=== PATIENT | female | born 1975 | race Caucasian/White ===

== ENCOUNTER 2016-06-21 18:47 | Emergency (ER) | payer OTHER ==
[~2016-06-21] VITALS: Ht 177.8 cm; Wt 71.7 kg
[~2016-06-21 18:47] MED LIST: NFPRILOC40 PO; PANT40TA2 PO; SUCR1ORA5 PO; SUCR1TAB36 PO
--- OUTSIDE RECORDS SUMMARY | 2016-06-21 18:53 | XMS REPORT | Referral Summary ---
Author Author [facility] Organization [facility] Address Unknown Phone Unavailable Care Team Providers Care Process Tank Tender Name Role Phone PROVIDER, NOTINSYSTEM PCP Unavailable Encounter Date(s): 02/23/16 - 02/23/16 [facility] [address] [place], [place] [address] Discharge Diagnosis: Pyloric stenosis Discharge Disposition: 01-Home or Self Care Attending Physician: Myke Chapman III, MD Admitting Physician: Myke Chapman III, MD Vital Signs Most recent to 1 oldest [Reference Range]: Peripheral Pulse 104 bpm Rate [60-100 bpm] *HI* (02/23/16 2:51 PM) Blood Pressure 110/71 mmHg [90-140/60-90 mmHg] (02/23/16 2:51 PM) Problem List No data available for this section Allergies, Adverse Reactions, Alerts No Known Allergies Medications Carafate g, Oral, QIDACHS, 0 Refill(s) Start Date: 02/23/16 Status: OrderedProtonix Oral, Daily, 0 Refill(s) Start Date: 02/23/16 Status: Ordered Results No data available for this section Immunizations No data available for this section Procedures No data available for this section Social History Social History Type Response Smoking Status Current every day smoker; Type: Cigarettes; Tobacco use per day: 1 Pack Assessment and Plan No data available for this section
[2016-06-21 19:20] LABS: BILIRUBIN,URINE NEGATIVE (NEGATIVE); KETONES,URINE 1+ (NEGATIVE); LEUKOCYTE ESTERASE ,URINE 1+ (NEGATIVE); NITRITE,URINE POSITIVE (NEGATIVE); PH,URINE 8 (5-9); PROTEIN,URINE 2+ (NEGATIVE); UROBILINOGEN,URINE NORMAL (NORMAL)
[2016-06-21] MEDS ORDERED: NS IV 1000 ML 1,000 ML IV ONE (19:27)
[2016-06-21] MEDS ORDERED: FAMOTIDINE 20MG/2ML IV (PEPCID) IVP ONE (19:30)
[2016-06-21] MEDS ORDERED: ONDANSETRON 4 MG/2 ML (SDV) Z0FRAN IVP ONE (19:30)
[2016-06-21] MEDS ORDERED: fentaNYL INJECTION 100 MCG/2 ML AMP IVP ONE (19:30)
[2016-06-21 19:36] LABS: BASOPHILS % (AUTO) 0 % (0-10); EOSINOPHILS # (AUTO) 0.1 10^3/uL (0.0-0.3); EOSINOPHILS % (AUTO) 1 % (0-10); LYMPHOCYTES # (AUTO) 2.9 X 10^3 (1.0-4.0); LYMPHOCYTES % (AUTO) 25 % (12-44); MEAN CORPUSCULAR HEMOGLOBIN 24 PG (25-34); MEAN CORPUSCULAR HGB CONC 32 G/DL (32-36); MEAN CORPUSCULAR VOLUME 76 FL (80-99); MEAN PLATELET VOLUME 10.6 FL (7.4-10.4); MONOCYTES # (AUTO) 0.7 X 10^3 (0.0-1.0); MONOCYTES % (AUTO) 6 % (0-12); NEUTROPHILS # (AUTO) 7.9 X 10^3 (1.8-7.8); NEUTROPHILS % (AUTO) 68 % (42-75); PLATELET COUNT 382 10^3/uL (130-400); RED BLOOD COUNT 4.75 10^6/uL (4.35-5.85); RED CELL DISTRIBUTION WIDTH 17.5 % (10.0-14.5); WHITE BLOOD COUNT 11.6 10^3/uL (4.3-11.0)
[2016-06-21 19:41] LABS: SQUAMOUS EPITHELIAL CELL,UR >50 /HPF
[2016-06-21 19:49] LABS: ALANINE AMINOTRANSFERASE 29 U/L (0-55); ALBUMIN 4.6 G/DL (3.2-4.5); ANION GAP 15 MMOL/L (5-14); ASPARTATE AMINO TRANSFERASE 21 U/L (5-34); BILIRUBIN,TOTAL 0.4 MG/DL (0.1-1.0); BLOOD UREA NITROGEN 8 MG/DL (7-18); BUN/CREATININE RATIO 11; CALCIUM 11.5 MG/DL (8.5-10.1); CARBON DIOXIDE 23 MMOL/L (21-32); CHLORIDE 102 MMOL/L (98-107); CREATININE SERUM 0.72 MG/DL (0.60-1.30); GFR ESTIMATED > 60; GLUCOSE 105 MG/DL (70-105); LIPASE 22 U/L (8-78); POTASSIUM 3.7 MMOL/L (3.6-5.0); SODIUM 140 MMOL/L (135-145); TOTAL PROTEIN 7.6 G/DL (6.4-8.2); hs C REACTIVE PROTEIN 0.16 MG/DL (0.00-0.50)
[2016-06-21] MEDS ORDERED: cefTRIAXone INJECTION 1,000 MG in NORMAL SALINE (BAXTER MINI) 50 ML IV ONE (20:00)
--- NOTE | 2016-06-21 20:00 | Diagnostic Imaging Report ---
INDICATION: History of pyloric stenosis. FINDINGS: The lung bases are clear. The stomach is distended with air-fluid level present. The small bowel and colon are not distended. There is very little stool noted within the colon. There is no organomegaly. No pathologic calcification. No bony abnormalities. IMPRESSION: Distended stomach which is fluid-filled with very little gas or stool in the colon. Dictated by: Dictated on workstation # [id number]
[2016-06-21] MEDS ORDERED: LIDOCAINE 2% VISCOUS 15 ML UDC PO ONE (20:15)
[2016-06-21] MEDS ORDERED: ANTACID SUSP 30 ML UDC (MYLANTA) PO ONE (20:15)
[2016-06-21] MEDS ORDERED: RX-METOCLOPRAMIDE 5 MG (REGLAN) TAB PPK#8 PO STA (20:37)
--- NOTE | 2016-06-21 20:37 | ED Abdominal Pain ---
General Chief Complaint: Abdominal/GI Problems Stated Complaint: ABD PAIN, POST PROCEDURE Nursing Triage Note: patient reports having an EGD with dilation 1 week ago. patient reports having cramping and abdomen pain since Sepsis Screen: No Definite Risk Source of Information: Patient Exam Limitations: No Limitations History of Present Illness Time Seen By Provider: 19:07 Initial Comments This 41-year-old woman presents to the emergency room with rather intense epigastric pain associated with nausea and vomiting. She reports having an EGD with dilation performed last by Dr. Peter Chapman, her specialist at [facility]. She requires these procedures every couple of months. She has been taking Protonix and Carafate as prescribed. She needs surgical treatment but is delaying treatment until school is over in October. She denies any fever. She attempted to contact her specialist's office today and left a voicemail. They have not yet returned her call. She has significant cramping associated with her pain. She has had difficulty staying hydrated today because of her nausea and pain. Allergies and Home Medications Allergies Coded Allergies: No Known Drug Allergies (Unverified , 09/13/15) Home Medications Pantoprazole Sodium 40 Mg Tablet.dr #60 40 MG PO BID Prescribed by: FRANK LUCERO on 10/13/15 1315 Sucralfate 1 Gm/10 Ml Oral.susp #120 1 GM PO QID Prescribed by: FRANK LUCERO on 10/13/15 1315 Review of Systems Constitutional: no symptoms reported EENTM: No Symptoms Reported Respiratory: No Symptoms Reported Cardiovascular: No Symptoms Reported Gastrointestinal: See HPI Genitourinary: No Symptoms Reported Musculoskeletal: no symptoms reported Skin: no symptoms reported Psychiatric/Neurological: No Symptoms Reported Endocrine: No Symptoms Reported Past Tntnylv-Alvhvi-Chhuns Hx Patient Social History Alcohol Use: Denies Use Recreational Drug Use: No Smoking Status: Current Everyday Smoker Type Used: Cigarettes Recent Foreign Travel: No Contact w/Someone Who Travel: No Recent Infectious Disease Expo: No Recent Hopitalizations: No Physical Abuse Screen: No Sexual Abuse: No Surgeries HX Surgeries: Yes (left breast lumpectomy, dxls, egd, pyloric stenosis dilation ) Respiratory Hx Respiratory Disorders: No Cardiovascular Hx Cardiac Disorders: No Neurological Hx Neurological Disorders: No Reproductive System : No Genitourinary Hx Genitourinary Disorders: No Gastrointestinal Hx Gastrointestinal Disorders: Yes (pyloric stenosis) Musculoskeletal Hx Musculoskeletal Disorders: No Endocrine Hx Endocrine Disorders: No HEENT HX ENT Disorders: No Cancer Hx Cancer: No Psychosocial Hx Psychiatric Problems: No Family Medical History Significant Family History: Heart Disease, Cancer, CAD Under 55 Years Old, Diabetes Physical Exam Vital Signs VS - Last 72 Hours, by Label 06/21/16 06/21/16 19:00 21:40 Temp 99.8 Pulse 120 88 Resp 18 18 B/P 133/79 Pulse Ox 96 99 Capillary Refill : Less Than 3 Seconds General Appearance: WD/WN mild distress HEENT: PERRL/EOMI normal ENT inspection Respiratory: lungs clear normal breath sounds no respiratory distress no accessory muscle use Cardiovascular: regular rate, rhythm no edema no murmur Gastrointestinal: normal bowel sounds soft tenderness (epigastrium) Extremities: normal inspection no pedal edema 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 no motor/sensory deficits alert normal mood/affect oriented x 3 Skin: normal color warm/dry Progress/Results/Core Measures Results/Orders Lab Results Laboratory Tests Test 06/21/16 19:06 06/21/16 19:10 Range/Units Urine Bacteria LARGE H /HPF Urine Bilirubin NEGATIVE NEGATIVE Urine Casts NONE /LPF Urine Clarity SLIGHTLY CLOUDY Urine Color YELLOW Urine Crystals NONE /LPF Urine Culture Indicated YES Urine Glucose (UA) NEGATIVE NEGATIVE Urine Ketones 1+ H NEGATIVE Urine Leukocyte Esterase 1+ H NEGATIVE Urine Mucus NEGATIVE /LPF Urine Nitrite POSITIVE H NEGATIVE Urine Protein 2+ H NEGATIVE Urine RBC NONE /HPF Urine RBC (Auto) NEGATIVE NEGATIVE Urine Specific [place] 1.010 L 1.016-1.022 Urine Squamous Epithelial Cells >50 H /HPF Urine Urobilinogen NORMAL NORMAL MG/DL Urine WBC 10-25 H /HPF Urine pH 8 5-9 Alanine Aminotransferase (ALT/SGPT) 29 0-55 U/L Albumin 4.6 H 3.2-4.5 G/DL Alkaline Phosphatase 69 40-136 U/L Anion Gap 15 H 5-14 MMOL/L Aspartate Amino Transf (AST/SGOT) 21 5-34 U/L BUN/Creatinine Ratio 11 Basophils # (Auto) 0.0 0.0-0.1 10^3/uL Basophils (%) (Auto) 0 0-10 % Blood Urea Nitrogen 8 7-18 MG/DL C-Reactive Protein High Sensitivity 0.16 0.00-0.50 MG/DL Calcium Level 11.5 H 8.5-10.1 MG/DL Carbon Dioxide Level 23 21-32 MMOL/L Chloride Level 102 98-107 MMOL/L Creatinine 0.72 0.60-1.30 MG/DL Eosinophils # (Auto) 0.1 0.0-0.3 10^3/uL Eosinophils (%) (Auto) 1 0-10 % Estimat Glomerular Filtration Rate > 60 Glucose Level 105 70-105 MG/DL Hematocrit 36 35-52 % Hemoglobin 11.5 11.5-16.0 G/DL Lipase 22 8-78 U/L Lymphocytes # (Auto) 2.9 1.0-4.0 X 10^3 Lymphocytes (%) (Auto) 25 12-44 % Mean Corpuscular Hemoglobin 24 L 25-34 PG Mean Corpuscular Hemoglobin Concent 32 32-36 G/DL Mean Corpuscular Volume 76 L 80-99 FL Mean Platelet Volume 10.6 H 7.4-10.4 FL Monocytes # (Auto) 0.7 0.0-1.0 X 10^3 Monocytes (%) (Auto) 6 0-12 % Neutrophils # (Auto) 7.9 H 1.8-7.8 X 10^3 Neutrophils (%) (Auto) 68 42-75 % Platelet Count 382 130-400 10^3/uL Potassium Level 3.7 3.6-5.0 MMOL/L Red Blood Count 4.75 4.35-5.85 10^6/uL Red Cell Distribution Width 17.5 H 10.0-14.5 % Sodium Level 140 135-145 MMOL/L Total Bilirubin 0.4 0.1-1.0 MG/DL Total Protein 7.6 6.4-8.2 G/DL White Blood Count 11.6 H 4.3-11.0 10^3/uL My Orders Orders-TERESA ELIZONDO MD Ua Culture If Indicated (06/21/16 19:07) Cbc With Automated Diff (06/21/16 19:27) Comprehensive Metabolic Panel (06/21/16 19:27) Hs C Reactive Protein (06/21/16 19:27) Lipase (06/21/16 19:27) Saline Lock/Iv-Start (06/21/16 19:27) Ns Iv 1000 Ml (Sodium Chloride 0.9%) (06/21/16 19:27) Famotidine Injection (Pepcid Injection) (06/21/16 19:30) Ondansetron Injection (Zofran Injectio (06/21/16 19:30) Fentanyl Injection (Sublimaze Injection (06/21/16 19:30) Urine Bedside (06/21/16 19:29) Abdomen, Flat & Upright/Decub (06/21/16 19:29) Urine Culture (06/21/16 19:06) Ceftriaxone Injection (Rocephin Injectio (06/21/16 20:00) Lidocaine 2% Viscous 15 Ml (Xylocaine Vi (06/21/16 20:15) Antacid Suspension (Mylanta Suspension (06/21/16 20:15) Rx-Metoclopramide Tab (Rx-Reglan Tab) (06/21/16 20:37) Hyoscyamine Sl Tablet (Levsin Sl Tablet) (06/21/16 21:00) Hydrocodone/Apap 5/325 Tablet (Lortab 5 (06/21/16 21:30) Rx-Hyoscyamine Tab (Rx-Levsin Sl) (06/21/16 21:26) Rx-Ondansetron Po (Rx-Zofran Po) (06/21/16 21:26) Medications Given in ED Current Medications Medications Dose Ordered Sig/Nicole Route Start Time Stop Time Status Last Admin Dose Admin Acetaminophen/ Hydrocodone Bitart 1 tab ONCE ONCE PO 06/21/16 21:30 06/21/16 21:31 DC 06/21/16 21:40 1 TAB Al Hydrox/Mg Hydrox/Simethicone 30 ml ONCE ONCE PO 06/21/16 20:15 06/21/16 20:16 DC 06/21/16 20:09 30 ML Ceftriaxone Sodium/Sodium Chloride 50 ml @ 100 mls/hr ONCE ONCE IV 06/21/16 20:00 06/21/16 20:29 DC 06/21/16 20:09 100 MLS/HR Famotidine 20 mg ONCE ONCE IVP 06/21/16 19:30 06/21/16 19:31 DC 06/21/16 19:37 20 MG Fentanyl Citrate 50 mcg 50 mcg ONCE ONCE IVP 06/21/16 19:30 06/21/16 19:31 DC 06/21/16 19:37 50 MCG Hyoscyamine Sulfate 0.25 mg ONCE ONCE PO 06/21/16 21:00 06/21/16 21:01 DC 06/21/16 21:01 0.25 MG Lidocaine HCl 15 ml ONCE ONCE PO 06/21/16 20:15 06/21/16 20:16 DC 06/21/16 20:09 15 ML Ondansetron HCl 8 mg ONCE ONCE IVP 06/21/16 19:30 06/21/16 19:31 DC 06/21/16 19:37 8 MG Sodium Chloride 1,000 ml @ 0 mls/hr Q0M ONCE IV 06/21/16 19:27 06/21/16 19:30 DC 06/21/16 19:37 0 MLS/HR Vital Signs/I&O Vital Sign - Last 12Hours 06/21/16 06/21/16 19:00 21:40 Temp 99.8 Pulse 120 88 Resp 18 18 B/P 133/79 Pulse Ox 96 99 Blood Pressure Mean: 97 Point of Care Testing Urine -Bedside: Negative Progress Note : Progress Note Patient had some improvement with GI cocktail and Pepcid. She was additionally treated with fentanyl for additional pain relief. Rocephin was given for treatment of urinary tract infection. Levsin was given for cramping which did provide relief. Take home packets of Zofran, Reglan, and Levsin were provided. Stomach appeared distended on x-rays. Delayed gastric emptying was suspected. For this reason Reglan was provided to increase GI motility. Hydrocodone was given just before dismissal to help her get through the night. Diagnostic Imaging Diagonstic Imaging: Xray Plain Films/CT/US/NM/MRI: abdomen, pelvis Comments Flat and upright abdominal films viewed by me and report reviewed. See report below: NAME: ANDREW RODGERS [facility] REC#: [id number] PT STATUS: REG ER : 1975 PHYSICIAN: TERESA ELIZONDO MD ADMIT DATE: 06/21/16/ER Signed Date of Exam: 06/21/16 ABDOMEN, FLAT & UPRIGHT/DECUB INDICATION: History of pyloric stenosis. FINDINGS: The lung bases are clear. The stomach is distended with air-fluid level present. The small bowel and colon are not distended. There is very little stool noted within the colon. There is no organomegaly. No pathologic calcification. No bony abnormalities. IMPRESSION: Distended stomach which is fluid-filled with very little gas or stool in the colon. Dictated by: Dictated on workstation # [id number] Dict: 06/21/161957 Trans: 06/21/162015 PRATIK [id number] Interpreted by: SAMINA BHATT MD Electronically signed by:SAMINA BHATT MD 06/21/162018 Departure Impression Impression: Primary Impression: Epigastric pain Additional Impressions: Urinary tract infection Qualified Code: N39.0 - Urinary tract infection, site not specified Pyloric stenosis Nausea and vomiting Qualified Code: R11.2 - Nausea with vomiting, unspecified Disposition: 01 HOME, SELF-CARE Condition: Improved Departure-Patient Inst. Decision time for Depature: 21:28 Referrals: [facility] (PCP/Family) Primary Care Physician Patient Instructions: Acute Abdomen (Belly Pain), Adult (DC), Urinary Tract Infection, Adult (DC) Add. Discharge Instructions: You're being provided with multiple medications this evening to trial. They are as follows: Levsin (hyoscyamine) - Use this medication for abdominal cramping or spasms. Dissolve 1 or 2 under the tongue every 4 hours as needed. Zofran (ondansetron) - Dissolve one under the tongue every 4 hours as needed for nausea. Reglan (metoclopramide) - You may take one every 6 hours as needed for nausea. This medication increases GI motility which may help your stomach empty better. This medication can cause abnormal muscle twitching and movements has an adverse side effect. If you experience these symptoms, please discontinue. Also discontinue Reglan if it worsens or cramping. It may be helpful to take Zofran (ondansetron) prior to this medication to ensure you keep it down when nauseated. Contact your GI specialist as soon as possible tomorrow for further instructions. Until then, stick to a clear liquid diet. Return to the emergency room if symptoms worsen. You may benefit from adding Pepcid (famotidine) [id number] 20 mg twice a day for additional antacid relief. Avoid things that may irritate your stomach including: Large meals, eating close to bedtime, spicy foods, citrus fruits and juices, caffeine, carbonation, chocolate, mint, tomato products, tobacco, alcohol, NSAID medications such as ibuprofen or naproxen, fatty or greasy foods, or anything else you know irritate your stomach. All discharge instructions reviewed with patient and/or family. Voiced understanding. Scripts Cephalexin (Keflex)500 Mg [id number] Mg PO QID #28 CAP Please notify patient when ready for pickup Prov:TERESA ELIZONDO MD 06/22/16 TERESA ELIZONDO MD Jun 21, 2016 20:37
[2016-06-21] MEDS ORDERED: HYOSCYAMINE 0.125 MG (LEVSIN) TAB PO ONE (21:00)
[2016-06-21] MEDS ORDERED: RX-HYOSCYAMINE 0.125 MG SL (LEVSIN) PPK#6 SL STA (21:26)
[2016-06-21] MEDS ORDERED: RX-ONDANSETRON 4 MG ODT (ZOFRAN) PPK #4 SL STA (21:26)
[2016-06-21] MEDS ORDERED: HYDROcodone/APAP 5 MG/325 MG (LORTAB) TAB PO ONE (21:30)
[2016-06-21 21:40] VITALS: BP 111/74
[2016-06-22] MEDS ORDERED: CEPH-507 PO (06:27)
== END 2016-06-21 21:41 | disposition home or self-care (01) ==
LOC: EDUNIT# 18:47 → ER 18:49
DX: R10.13 Epigastric pain (principal); N39.0 Urinary tract infection, site not specified; K31.89 Other diseases of stomach and duodenum; K31.1 Adult hypertrophic pyloric stenosis; F17.210 Nicotine dependence, cigarettes, uncomplicated; R11.2 Nausea with vomiting, unspecified
CPT/HCPCS: 36415; 74020; 80053; 81000; 83690; 84703; 85025; 86141; 87088; 87186; 96365; 96375

== ENCOUNTER 2016-06-22 22:30 | Observation (INO) | payer OTHER ==
[~2016-06-22] VITALS: Ht 177.8 cm; Wt 72.3 kg
[~2016-06-22 22:30] MED LIST changes: +CEPH-507 PO
[2016-06-22] MEDS ORDERED: LACTATED RINGERS 1,000 ML IV ONE (23:13)
[2016-06-22] MEDS ORDERED: ONDANSETRON 4 MG/2 ML (SDV) Z0FRAN IVP ONE (23:15)
[2016-06-23] MEDS ORDERED: PROMETHAZINE INJ 25 MG/ML (PHENERGAN) AMP IVP ONE
[2016-06-23] MEDS ORDERED: PANTOPRAZOLE 40 MG/10 ML (PROTONIX) VIAL IV ONE
[2016-06-23] MEDS ORDERED: NS IV 1000 ML 1,000 ML IV ONE ×2 (00:01→11:45)
[2016-06-23 00:03] LABS: BASOPHILS % (AUTO) 0 % (0-10); EOSINOPHILS # (AUTO) 0.1 10^3/uL (0.0-0.3); EOSINOPHILS % (AUTO) 0 % (0-10); LYMPHOCYTES # (AUTO) 2.1 X 10^3 (1.0-4.0); LYMPHOCYTES % (AUTO) 16 % (12-44); MEAN CORPUSCULAR HEMOGLOBIN 25 PG (25-34); MEAN CORPUSCULAR HGB CONC 32 G/DL (32-36); MEAN CORPUSCULAR VOLUME 76 FL (80-99); MEAN PLATELET VOLUME 10.6 FL (7.4-10.4); MONOCYTES # (AUTO) 0.7 X 10^3 (0.0-1.0); MONOCYTES % (AUTO) 5 % (0-12); NEUTROPHILS # (AUTO) 10.4 X 10^3 (1.8-7.8); NEUTROPHILS % (AUTO) 78 % (42-75); PLATELET COUNT 364 10^3/uL (130-400); RED BLOOD COUNT 4.55 10^6/uL (4.35-5.85); RED CELL DISTRIBUTION WIDTH 17.5 % (10.0-14.5); WHITE BLOOD COUNT 13.3 10^3/uL (4.3-11.0)
[2016-06-23 00:05] LABS: BILIRUBIN,URINE NEGATIVE (NEGATIVE); KETONES,URINE 4+ (NEGATIVE); LEUKOCYTE ESTERASE ,URINE 1+ (NEGATIVE); NITRITE,URINE NEGATIVE (NEGATIVE); PROTEIN,URINE 1+ (NEGATIVE); UROBILINOGEN,URINE NORMAL (NORMAL)
[2016-06-23 00:07] LABS: PH,URINE 8 (5-9); WBC,URINE 0-2 /HPF
[2016-06-23 00:08] LABS: YEAST,URINE FEW /HPF
[2016-06-23 00:13] LABS: ALANINE AMINOTRANSFERASE 35 U/L (0-55); ALBUMIN 4.6 G/DL (3.2-4.5); AMYLASE 35 U/L (25-125); ANION GAP 18 MMOL/L (5-14); ASPARTATE AMINO TRANSFERASE 30 U/L (5-34); BILIRUBIN,TOTAL 0.3 MG/DL (0.1-1.0); BLOOD UREA NITROGEN 9 MG/DL (7-18); BUN/CREATININE RATIO 13; CALCIUM 9.8 MG/DL (8.5-10.1); CARBON DIOXIDE 23 MMOL/L (21-32); CHLORIDE 100 MMOL/L (98-107); CREATININE SERUM 0.72 MG/DL (0.60-1.30); GFR ESTIMATED > 60; GLUCOSE 90 MG/DL (70-105); LIPASE 13 U/L (8-78); POTASSIUM 3.5 MMOL/L (3.6-5.0); SODIUM 141 MMOL/L (135-145); TOTAL PROTEIN 7.6 G/DL (6.4-8.2)
[2016-06-23 00:28] LABS: OCCULT BLOOD NEGATIVE QC NEGATIVE (NEGATIVE); OCCULT BLOOD POSITIVE QC POSITIVE (POSITIVE); OCCULT BLOOD,GASTRIC FLUID POSITIVE (NEGATIVE)
[2016-06-23] MEDS ORDERED: IOHEXOL 350 MG/ML 100 ML (OMNIPAQUE 350) VIAL IV ONE (01:00)
[2016-06-23] MEDS ORDERED: NS 100 ML (IVPB) BAG IV ONE (01:00)
--- NOTE | 2016-06-23 01:53 | ED GI ---
General Chief Complaint: Abdominal/GI Problems Stated Complaint: NAUSEA/VOMITING Nursing Triage Note: Here stating returned "again like last night". Pt with nausea and vomiting. Some epigastric pain. Patient had scope in [place] Saturday. States she was given prescriptions but called [place] today and got something different. Sepsis Screen: No Definite Risk Source of Information: Patient History of Present Illness Time Seen By Provider: 23:14 Initial Comments PT HAS HAD GI PROBLEMS FOR YEARS, WORSE FOR THE LAST YEAR AND ESPECIALLY BAD FOR THE LAST WEEK PT HAS BEEN DX WITH PYLORIC STENOSIS, AND HAS HAD MULTIPLE EGD'S AND DILATIONS OF PYLORUS HAS BEEN SEEN BY DR. LUCERO, WHO REFERRED HER TO DR. SAMANIEGO IN [place]. PT HAD EGD AND DILATION THERE 1 1/2 WEEKS AGO. SYMPTOMS HAVE GOTTEN WORSE SINCE THEN. PT STATES SHE IS TO HAVE IT DONE AGAIN 09/10/16 AND IS TO HAVE SURGERY FOR THIS IN OCTOB[place] BY DR. SAMANIEGO PT WAS SEEN IN ER FOR SAME LAST NIGHT. NAUSEA MEDICATIONS ARE NOT HELPING STATES SHE IS WORSE TONIGHT AND CANNOT KEEP ANY LIQUIDS DOWN X 2 DAYS AND HAS NOT HAD ANY FOOD X 2 DAYS. IS UNSURE IF SHE KEPT HER MEDICATION DOWN TODAY. HAS CONTINUED TO DRINK WATER TODAY, NOTHING ELSE TO DRINK X 2 DAYS HAS BEEN THROWING UP BLOOD ALL DAY TODAY. HAS VOMITED X 6 PRIOR TO ARRIVAL, AND HAS VOMITED A FEW TIMES SINCE ARRIVAL HERE ---OBVIOUS BLOOD IN EMESIS ( EMESIS IS PINK WITH MULTIPLE SMALL CLOTS/STRANDS OF BLOOD IN IT--NO FOOD IN EMESIS, ONLY CLEAR PINK FLUID) C/O EPIGASTRIC PAIN NO DIARRHEA NO FEVER NO URINARY SYMPTOMS LMP 06/09/16--NORMAL, NO CONTROL [facility] SURGEON: DR. NIC SAMANIEGO, SURGEON FROM [place] Allergies and Home Medications Allergies Coded Allergies: No Known Drug Allergies (Unverified , 09/13/15) Home Medications Cephalexin 500 Mg Capsule #28 500 MG PO QID Please notify patient when ready for pickup Prescribed by: TERESA MERLOS on 06/22/16 0658 Review of Systems Constitutional: no symptoms reported Respiratory: No Symptoms Reported Cardiovascular: No Symptoms Reported Gastrointestinal: See HPIDenies Abdomen Distended, Abdominal PainDenies Diarrhea, Nausea Poor Appetite Poor Fluid Intake Vomiting Genitourinary: No Symptoms Reported Musculoskeletal: no symptoms reported Skin: no symptoms reported Psychiatric/Neurological: No Symptoms Reported Endocrine: No Symptoms Reported Hematologic/Lymphatic: No Symptoms Reported Past Ietuqin-Sqczaa-Pzabwm Hx Patient Social History Alcohol Use: Denies Use Recreational Drug Use: No Smoking Status: Current Everyday Smoker (1 PPD) Type Used: Cigarettes Recent Foreign Travel: No Contact w/Someone Who Travel: No Recent Infectious Disease Expo: No Recent Hopitalizations: No Physical Abuse Screen: No Sexual Abuse: No Surgeries HX Surgeries: Yes (LEFT BREAST LUMPECTOMY, DIAGNOSTIC LAPAROSCOPY, MULTIPLE EGD 'S AND ESOPHAGEAL DILATIONS) Surgeries: Abdominal, Appendectomy, Breast Respiratory Hx Respiratory Disorders: No Cardiovascular Hx Cardiac Disorders: No Neurological Hx Neurological Disorders: No Reproductive System : No Female Reproductive Disorders: Denies Genitourinary Hx Genitourinary Disorders: No Gastrointestinal Hx Gastrointestinal Disorders: Yes (PYLORIC STENOSIS) Musculoskeletal Hx Musculoskeletal Disorders: No Endocrine Hx Endocrine Disorders: No HEENT HX ENT Disorders: No Cancer Hx Cancer: No Psychosocial Hx Psychiatric Problems: No Family Medical History Significant Family History: Heart Disease, Cancer, CAD Under 55 Years Old, Diabetes Physical Exam Vital Signs VS - Last 72 Hours, by Label 06/22/16 22:37 Temp 99.4 Pulse 98 Resp 20 B/P 128/77 Pulse Ox 96 O2 Delivery Room Air Capillary Refill : Less Than 3 Seconds General Appearance: WD/WN no apparent distress HEENT: PERRL/EOMI Neck: normal inspection Respiratory: normal breath sounds no respiratory distress no accessory muscle use Cardiovascular: regular rate, rhythm no murmur Gastrointestinal: normal bowel sounds soft no organomegaly no pulsatile massNo distended, No guarding, No rebound, tenderness (MODERATE EPIGASTRIC TENDERNESS)No hernia, No mass Extremities: normal inspection Back: no CVA tenderness 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 no motor/sensory deficits alert normal mood/affect oriented x 3 Skin: normal color warm/dry Progress/Results/Core Measures Results/Orders Lab Results Laboratory Tests Test 06/22/16 23:30 06/22/16 23:35 06/23/16 00:05 Range/Units Urine Bacteria TRACE /HPF Urine Bilirubin NEGATIVE NEGATIVE Urine Casts NONE /LPF Urine Clarity CLEAR Urine Color YELLOW Urine Crystals NONE /LPF Urine Culture Indicated NO Urine Glucose (UA) NEGATIVE NEGATIVE Urine Ketones 4+ H NEGATIVE Urine Leukocyte Esterase 1+ H NEGATIVE Urine Mucus SMALL H /LPF Urine Nitrite NEGATIVE NEGATIVE Urine Protein 1+ H NEGATIVE Urine RBC NONE /HPF Urine RBC (Auto) NEGATIVE NEGATIVE Urine Specific [place] 1.015 L 1.016-1.022 Urine Squamous Epithelial Cells 2-5 /HPF Urine Urobilinogen NORMAL NORMAL MG/DL Urine WBC 0-2 /HPF Urine Yeast FEW H /HPF Urine pH 8 5-9 Alanine Aminotransferase (ALT/SGPT) 35 0-55 U/L Albumin 4.6 H 3.2-4.5 G/DL Alkaline Phosphatase 69 40-136 U/L Amylase Level 35 25-125 U/L Anion Gap 18 H 5-14 MMOL/L Aspartate Amino Transf (AST/SGOT) 30 5-34 U/L BUN/Creatinine Ratio 13 Basophils # (Auto) 0.0 0.0-0.1 10^3/uL Basophils (%) (Auto) 0 0-10 % Blood Urea Nitrogen 9 7-18 MG/DL Calcium Level 9.8 8.5-10.1 MG/DL Carbon Dioxide Level 23 21-32 MMOL/L Chloride Level 100 98-107 MMOL/L Creatinine 0.72 0.60-1.30 MG/DL Eosinophils # (Auto) 0.1 0.0-0.3 10^3/uL Eosinophils (%) (Auto) 0 0-10 % Estimat Glomerular Filtration Rate > 60 Glucose Level 90 70-105 MG/DL Hematocrit 35 35-52 % Hemoglobin 11.2 L 11.5-16.0 G/DL Lipase 13 8-78 U/L Lymphocytes # (Auto) 2.1 1.0-4.0 X 10^3 Lymphocytes (%) (Auto) 16 12-44 % Mean Corpuscular Hemoglobin 25 25-34 PG Mean Corpuscular Hemoglobin Concent 32 32-36 G/DL Mean Corpuscular Volume 76 L 80-99 FL Mean Platelet Volume 10.6 H 7.4-10.4 FL Monocytes # (Auto) 0.7 0.0-1.0 X 10^3 Monocytes (%) (Auto) 5 0-12 % Neutrophils # (Auto) 10.4 H 1.8-7.8 X 10^3 Neutrophils (%) (Auto) 78 H 42-75 % Platelet Count 364 130-400 10^3/uL Potassium Level 3.5 L 3.6-5.0 MMOL/L Red Blood Count 4.55 4.35-5.85 10^6/uL Red Cell Distribution Width 17.5 H 10.0-14.5 % Serum Test, Qualitative NEGATIVE NEGATIVE Sodium Level 141 135-145 MMOL/L Total Bilirubin 0.3 0.1-1.0 MG/DL Total Protein 7.6 6.4-8.2 G/DL White Blood Count 13.3 H 4.3-11.0 10^3/uL Gastric Fluid Occult Blood POSITIVE NEGATIVE My Orders Orders-PHILL AVILES DO Saline Lock/Iv-Start (06/22/16 23:13) Amylase (06/22/16 23:13) Cbc With Automated Diff (06/22/16 23:13) Comprehensive Metabolic Panel (06/22/16 23:13) Hcg,Qualitative Serum (06/22/16 23:13) Lipase (06/22/16 23:13) Ua Culture If Indicated (06/22/16 23:13) Saline Lock/Iv-Start (06/22/16 23:13) Lactated Ringers (Lr 1000 Ml Iv Solution (06/22/16 23:13) Ondansetron Injection (Zofran Injectio (06/22/16 23:15) Pantoprazole Injection (Protonix Injecti (06/23/16 00:00) Promethazine Injection (Phenergan Injec (06/23/16 00:00) Ct Abdomen/Pelvis W (06/23/16 00:01) Saline Lock/Iv-Start (06/23/16 00:01) Ns Iv 1000 Ml (Sodium Chloride 0.9%) (06/23/16 00:01) Occult Blood,Gastric Fluid (06/23/16 00:02) Iohexol Injection (Omnipaque 350 Mg/Ml 1 (06/23/16 01:00) Ns (Ivpb) (Sodium Chloride 0.9% Ivpb Bag (06/23/16 01:00) Medications Given in ED Current Medications Medications Dose Ordered Sig/Nicole Route Start Time Stop Time Status Last Admin Dose Admin Iohexol 100 ml ONCE ONCE IV 06/23/16 01:00 06/23/16 01:01 DC 06/23/16 00:48 100 ML Lactated Ringer's 1,000 ml @ 0 mls/hr Q0M ONCE IV 06/22/16 23:13 06/22/16 23:15 DC 06/22/16 23:39 999 MLS/HR Ondansetron HCl 8 mg ONCE ONCE IVP 06/22/16 23:15 06/22/16 23:16 DC 06/22/16 23:38 8 MG Pantoprazole 80 mg ONCE ONCE IV 06/23/16 00:00 06/23/16 00:04 DC 06/23/16 00:07 80 MG Promethazine HCl 25 mg 25 mg ONCE ONCE IVP 06/23/16 00:00 06/23/16 00:04 DC 06/23/16 00:07 25 MG Sodium Chloride 100 ml ONCE ONCE IV 06/23/16 01:00 06/23/16 01:01 DC 06/23/16 00:48 80 ML Sodium Chloride 1,000 ml @ 0 mls/hr Q0M ONCE IV 06/23/16 00:01 06/23/16 00:04 DC 06/23/16 00:27 999 MLS/HR Vital Signs/I&O Vital Sign - Last 12Hours 06/22/16 22:37 Temp 99.4 Pulse 98 Resp 20 B/P 128/77 Pulse Ox 96 O2 Delivery Room Air Blood Pressure Mean: 94 Progress Note : Progress Note NAUSEA IMPROVED WITH MEDICATIONS. NO FURTHER VOMITING FOR REMAINDER OF ER STAY Diagnostic Imaging Comments CT ABDOMEN/PELVIS--PYLORIC STENOSIS, GB SLUDGE, OTHERWISE NO ACUTE PROCESS, PER [facility] VIA FAX @ [phone] Reviewed: Reviewed by Me Departure Communication Progress Notes [id number]--PAGED/SPOKE WITH DR. KWONG, ACCEPTS PT FOR ADMIT. ADVISES NG TUBE. Impression Impression: Primary Impression: Pyloric stenosis Additional Impressions: INTRACTABLE NAUSEA AND VOMTING WITH HEMATEMESIS Epigastric abdominal pain Disposition: ADMITTED INPATIENT Condition: Improved Decision to Admit Reason: Admit from ER (General) Decision to Admit/Date: Jun 23, 2016 Time/Decision to Admit Time: 01:35 Departure-Patient Inst. Referrals: [facility] (PCP/Family) Primary Care Physician PHILL AVILES DO Jun 23, 2016 01:53
[2016-06-23] MEDS ORDERED: D5 1/2 NS 1000 ML IV SOLUTION 1,000 ML IV ONE (02:52)
[2016-06-23] MEDS: D5 1/2 NS 1000 ML IV SOLUTION 1,000 ML IV SCH ×2 (03:04→09:36)
[2016-06-23 04:00] VITALS: BP 127/79
[2016-06-23] MEDS ORDERED: PROMETHAZINE INJ 25 MG/ML (PHENERGAN) AMP IVP PRN (04:00)
[2016-06-23] MEDS: ONDANSETRON 4 MG/2 ML (SDV) Z0FRAN IV PRN ×2 (05:17→09:36)
[2016-06-23] MEDS ORDERED: SUCR1TAB36 PO (05:20)
[2016-06-23] MEDS ORDERED: PANT40SU PO (05:20)
--- NOTE | 2016-06-23 07:31 | Diagnostic Imaging Report ---
PROCEDURE: CT abdomen and pelvis with contrast. TECHNIQUE: Multiple contiguous axial images were obtained through the abdomen and pelvis after administration of intravenous contrast. INDICATION: Nausea and vomiting with history of pyloric stenosis and previous appendectomy. Breast cancer. FINDINGS: Heart size is normal. The lung bases are clear. The liver is normal in size without focal lesions. Gallbladder is unremarkable. There is no biliary ductal dilatation. Spleen is normal. The pancreas and adrenal glands are unremarkable. The kidneys are normal. Aorta is nonaneurysmal. There is thickening of the pylorus consistent with a history of pyloric stenosis. There is no evidence of extraluminal air. The bowel gas pattern is nonspecific. There is some trace free fluid. There are no focal inflammatory changes. There are bilateral adnexal cysts measuring 1.9 cm on the right and 1.6 cm on the left. The osseous structures are unremarkable apart from mild degenerative change. IMPRESSION: Thickening of the pylorus consistent with a history of pyloric stenosis. There is however no evidence of extraluminal air. Bilateral adnexal cysts presumably of ovarian origin. These could be better evaluated with pelvic ultrasound if clinically warranted. No other acute abnormality in the abdomen or pelvis. Dictated by: Dictated on workstation # [id number]
[2016-06-23 08:00] VITALS: BP 128/68
[2016-06-23] MEDS ORDERED: FLU TRIvalent (5 YOA+) 2016-17 (AFLURIA) 0.5 ML IM ONE (08:00)
[2016-06-23 08:14] LABS: BASOPHILS % (AUTO) 0 % (0-10); EOSINOPHILS % (AUTO) 0 % (0-10); LYMPHOCYTES # (AUTO) 2.7 X 10^3 (1.0-4.0); LYMPHOCYTES % (AUTO) 22 % (12-44); MEAN CORPUSCULAR HEMOGLOBIN 24 PG (25-34); MEAN CORPUSCULAR HGB CONC 32 G/DL (32-36); MEAN CORPUSCULAR VOLUME 77 FL (80-99); MEAN PLATELET VOLUME 10.9 FL (7.4-10.4); MONOCYTES # (AUTO) 0.8 X 10^3 (0.0-1.0); MONOCYTES % (AUTO) 7 % (0-12); NEUTROPHILS # (AUTO) 8.8 X 10^3 (1.8-7.8); NEUTROPHILS % (AUTO) 71 % (42-75); PLATELET COUNT 302 10^3/uL (130-400); RED BLOOD COUNT 4.18 10^6/uL (4.35-5.85); RED CELL DISTRIBUTION WIDTH 17.5 % (10.0-14.5); WHITE BLOOD COUNT 12.3 10^3/uL (4.3-11.0)
--- NOTE | 2016-06-23 08:14 | Diagnostic Imaging Report ---
INDICATION: Evaluate tube placement. FINDINGS: The heart size is normal. Mediastinum is unremarkable. Lungs are clear. There is no pleural effusion or pneumothorax. Nasogastric has its tip in the body of the stomach. IMPRESSION: 1. No acute cardiopulmonary abnormality. 2. Nasogastric tube has its tip in the body of the stomach. Dictated by: Dictated on workstation # [id number]
[2016-06-23 08:34] LABS: ALANINE AMINOTRANSFERASE 31 U/L (0-55); ALBUMIN 4.2 G/DL (3.2-4.5); ANION GAP 14 MMOL/L (5-14); ASPARTATE AMINO TRANSFERASE 27 U/L (5-34); BILIRUBIN,TOTAL 0.3 MG/DL (0.1-1.0); BLOOD UREA NITROGEN 6 MG/DL (7-18); BUN/CREATININE RATIO 9; CALCIUM 8.8 MG/DL (8.5-10.1); CARBON DIOXIDE 20 MMOL/L (21-32); CHLORIDE 105 MMOL/L (98-107); CREATININE SERUM 0.66 MG/DL (0.60-1.30); GFR ESTIMATED > 60; GLUCOSE 92 MG/DL (70-105); POTASSIUM 3.2 MMOL/L (3.6-5.0); SODIUM 139 MMOL/L (135-145); TOTAL PROTEIN 6.8 G/DL (6.4-8.2)
[2016-06-23] MEDS ORDERED: PANTOPRAZOLE 40 MG/10 ML (PROTONIX) VIAL IV SCH ×2 (09:00→21:00)
[2016-06-23] MEDS ORDERED: POTASSIUM CL 10MEQ/50ML IVPB 50 ML IV SCH (11:15)
[2016-06-23] MEDS ORDERED: D5 1/2 NS W/KCL 20 MEQ/L 1,000 ML IV SCH (11:15)
[2016-06-23] MEDS ORDERED: METOCLOPRAMIDE INJ 10 MG/2 ML (REGLAN) IVP SCH (12:00)
--- NOTE | 2016-06-23 21:38 | HISTORY AND PHYSICAL ---
DATE OF ADMISSION: 06/23/2016 DIAGNOSES: 1. Gastric outlet obstruction. 2. Pyloric channel stricture. 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 This has been dilated using endoscopic balloon technique on numerous occasions. She reports inadequate relief of symptoms between sessions of dilation over the past year and a half. She developed gastric dilatation with vomiting, resulting in an ER visit. Evaluation has confirmed a thickened pylorus due to the stricture with dilatation of the stomach. 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 PAST SURGICAL HISTORY: 1. Lumpectomy of the left breast. 2. Laparoscopic appendectomy. MEDICATIONS: Protonix. ALLERGIES: None. 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 REVIEW OF SYSTEMS: NEURO: Denies any headache. CARDIAC: No angina or palpitations. RESPIRATORY: Cough due to possible early aspiration. No shortness of breath. GI: Epigastric pain and vomiting. OTHER SYSTEMS: Negative. PHYSICAL EXAMINATION: She is rather uncomfortable and anxious mainly due to discomfort from the nasogastric tube. VITAL SIGNS: Her vital signs are stable. Her temperature is slightly elevated at 100.2 degrees Fahrenheit. HEENT: Her neck is supple and there is no jugular venous distention. Trachea in the midline. A nasogastric tube is in place returning thick gastric contents. RESPIRATORY: Lungs are clear to auscultation. CARDIAC: Both heart tones are heard. No murmur. ABDOMEN: Soft with slight epigastric tenderness. A supraumbilical scar is seen, resulting from laparoscopic surgery. There is no trocar site hernia. LABORATORY DATA: Her white cell count is slightly elevated at 12.3. She is hypokalemic with potassium of 3.2, this will be addressed. ASSESSMENT: Lady with pyloric stricture and gastric dilatation. RECOMMENDATIONS/PLAN: Her stomach will be decompressed overnight and she will undergo diagnostic upper endoscopy tomorrow morning. It is likely that she will require gastrojejunostomy using minimally invasive technique. I have discussed this with her and she seems to be in agreement. Job ID: [id number] Dictated Date: 06/23/2016 10:52:47 [employer] Date: 06/23/2016 21:31:13/mike WANG
== END 2016-06-23 13:00 | disposition left against medical advice (07) ==
LOC: EDUNIT# 22:30 → ER 22:31 → UNDOADMOB 06-23 01:35 → 4TH 06-23 01:35 → UNDODISOB 06-23 13:00
PROVIDERS: ADMIT Surgery; ATTEND Surgery
DX: K31.1 Adult hypertrophic pyloric stenosis (principal); R11.2 Nausea with vomiting, unspecified; K92.0 Hematemesis; R10.13 Epigastric pain; K31.89 Other diseases of stomach and duodenum
CPT/HCPCS: 36415; 71010; 74177; 80053; 81000; 82150; 82271; 83690; 84703; 85025; 96361; 96365; 96375; G0378